=== PATIENT | male | born 1985 | race Caucasian/White ===

== ENCOUNTER 2020-01-09 02:34 | Emergency (ER) | payer MEDICAID ==
[~2020-01-09] VITALS: Ht 182.9 cm; Wt 89.2 kg
[2020-01-09 03:29] LABS: COLOR,URINE YELLOW (Yellow); GLUCOSE, URINE NEGATIVE (Neg); KETONES,URINE NEGATIVE (Neg); LEUKOCYTE ESTERASE ,URINE NEGATIVE (Neg); NITRITES, URINE NEGATIVE (Neg); OCCULT BLOOD,URINE NEGATIVE (Neg); PROTEIN,URINE 30 mg/dl (Neg)
[2020-01-09 03:38] LABS: UA COLLECTION TYPE URINAL
[2020-01-09 03:39] LABS: CLARITY,URINE SLIGHTLY CLOUDY (Clear)
[2020-01-09 03:40] LABS: BACTERIA,URINE FEW /HPF (Neg); CAL OXALATE CRYSTALS FEW /HPF (NEGATIVE); MUCUS STRANDS MODERATE /LPF (Neg); RBC,URINE NONE SEEN /HPF (0-2); SPERM MODERATE /HPF (NEGATIVE); SQUAMOUS EPITHELIAL CELL,UR FEW /LPF (FEW)
[2020-01-09] MEDS ORDERED: azithromycin 250mg tablet PO ONE (04:35)
[2020-01-09] MEDS: CefTRIAXone 250MG IM Kit w/LIDOcaine IM ONE ×2 (04:42→04:51)
[2020-01-09 05:01] VITALS: BP 143/93
== END 2020-01-09 05:06 | disposition home or self-care (01) ==
LOC: ER 02:35
DX: A64 Unspecified sexually transmitted disease (principal); R39.11 Hesitancy of micturition
CPT/HCPCS: 36415; 81001; 87088; 87491; 99283; J0696

== ENCOUNTER 2021-01-03 02:38 | Emergency (ER) | payer MEDICAID ==
[~2021-01-03] VITALS: Ht 182.9 cm; Wt 72.7 kg
--- NOTE | 2021-01-03 02:54 | NUR ---
MD DOWNS AT BEDSIDE
[2021-01-03] MEDS ORDERED: ibuprofen 200mg tablet PO ONE (02:55)
[2021-01-03] MEDS ORDERED: diphenhydrAMINE 50 mg/ml inj IM ONE (02:55)
[2021-01-03] MEDS ORDERED: EPIN0.3P3 IM (02:58)
[2021-01-03 03:16] VITALS: BP 140/89
== END 2021-01-03 03:19 | disposition home or self-care (01) ==
LOC: ER 02:39
DX: T63.411A Toxic effect of venom of centipedes and venomous millipedes, accidental (unintentional), initial encounter (principal); F12.90 Cannabis use, unspecified, uncomplicated; Z79.899 Other long term (current) drug therapy; X58.XXXA Exposure to other specified factors, initial encounter; Y93.89 Activity, other specified; Y92.89 Other specified places as the place of occurrence of the external cause; Y99.8 Other external cause status
CPT/HCPCS: 96372; 99283; J1200

== ENCOUNTER 2021-03-29 21:41 | Emergency (ER) | payer MEDICAID ==
[~2021-03-29] VITALS: Ht 185.4 cm; Wt 90.0 kg
[~2021-03-29 21:41] MED LIST: EPIN0.3P3 IM
[2021-03-29 21:42] VITALS: BP 134/82
[2021-03-29] MEDS ORDERED: normal saline 1000ML IV soln IV ONE (21:45)
== END 2021-03-29 21:55 | disposition left against medical advice (07) ==
LOC: ER 21:41
DX: B34.9 Viral infection, unspecified (principal); R19.7 Diarrhea, unspecified; F19.10 Other psychoactive substance abuse, uncomplicated; R50.9 Fever, unspecified; F17.200 Nicotine dependence, unspecified, uncomplicated; F12.90 Cannabis use, unspecified, uncomplicated; F15.90 Other stimulant use, unspecified, uncomplicated; Z72.89 Other problems related to lifestyle; Z79.899 Other long term (current) drug therapy
CPT/HCPCS: 99283